=== PATIENT | male | born 1960 | race African-American/Black ===

== ENCOUNTER 2017-04-13 23:44 | Inpatient (IN) | payer MEDICAID ==
[~2017-04-13] VITALS: Ht 175.3 cm; Wt 113.0 kg
[2017-04-14] MEDS ORDERED: AMLO10TA2 PO (00:20)
[2017-04-14 01:28] LABS: ASPARTATE AMINO TRANSFERASE 98 U/L (15-37); BLOOD UREA NITROGEN 75 mg/dL (7-18)
[2017-04-14] MEDS ORDERED: SODIUM CHLORIDE FLUSH 10ML SYR IVF ONE (02:00)
[2017-04-14] MEDS ORDERED: SODIUM CHLORIDE 0.9% 1,000ML IVBOLUS ONE (02:00)
[2017-04-14 03:16] LABS: DAU SCREEN DISCLAIMER
[2017-04-14] MEDS ORDERED: OXYcodone IR 5MG TABLET PO PRN (03:30)
[2017-04-14] MEDS ORDERED: ONDANSETRON 2MG/ML, 2ML IVPush PRN (03:30)
[2017-04-14] MEDS ORDERED: PROMETHAZINE 25 MG/ML, 1ML IM PRN (03:30)
[2017-04-14 03:55] LABS: ASPARTATE AMINO TRANSFERASE 92 U/L (15-37); BLOOD UREA NITROGEN 74 mg/dL (7-18)
[2017-04-14] MEDS: SODIUM CHLORIDE 0.9% 1,000 ML IV SCH ×3 (04:30→22:52)
[2017-04-14] MEDS: CEFTRIAXONE PMX 1GM/50ML 50 ML IV SCH (04:37)
[2017-04-14] MEDS: POTASSIUM CHLORIDE 20 MEQ TAB.ER.PRT PO SCH ×4 (04:48→17:44)
[2017-04-14] MEDS: HEPARIN 5,000 UNITS/ML, 1ML SQ SCH ×3 (05:30→22:52)
[2017-04-14] MEDS: METRONIDAZOLE PMX 500MG/100ML 100 ML IV SCH ×3 (05:45→22:52)
[2017-04-14 07:27] VITALS: BP 157/79
[2017-04-14 08:57] LABS: HIV 1&2 ANTIBODY SCREEN Nonreactive (Nonreactive); HIV-1 p24 ANTIGEN Nonreactive (Nonreactive)
[2017-04-14 09:47] LABS: HEPATITIS C VIRUS ANTIBODY Reactive (Nonreactive)
[2017-04-14 11:12] LABS: DAU SCREEN DISCLAIMER
[2017-04-14 11:28] LABS: POTASSIUM,URINE RANDOM 31 mmol/L
[2017-04-14 13:36] VITALS: BP 143/57
[2017-04-14] MEDS: FERROUS SULFATE 325 MG TABLET PO SCH (17:44)
[2017-04-14 18:09] LABS: OCCBLD OBC PASS
[2017-04-14 18:40] VITALS: BP 143/79
[2017-04-15 01:59] VITALS: BP 153/84
[2017-04-15] MEDS: HEPARIN 5,000 UNITS/ML, 1ML SQ SCH (03:19)
[2017-04-15] MEDS: CEFTRIAXONE PMX 1GM/50ML 50 ML IV SCH (04:33)
[2017-04-15 06:22] LABS: BLOOD UREA NITROGEN 27 mg/dL (7-18)
[2017-04-15 06:23] LABS: ASPARTATE AMINO TRANSFERASE 50 U/L (15-37)
[2017-04-15] MEDS: METRONIDAZOLE PMX 500MG/100ML 100 ML IV SCH ×3 (06:29→22:13)
[2017-04-15 07:12] VITALS: BP 153/72
[2017-04-15] MEDS: SODIUM CHLORIDE 0.9% 1,000 ML IV SCH ×3 (08:20→22:13)
[2017-04-15] MEDS ORDERED: POTASSIUM CHLORIDE 20 MEQ TAB.ER.PRT PO ONE (09:30)
[2017-04-15] MEDS: GABAPENTIN 300 MG CAPSULE PO SCH ×3 (10:21→22:48)
[2017-04-15] MEDS: AMLODIPINE 5 MG TABLET PO SCH (10:22)
[2017-04-15] MEDS: FERROUS SULFATE 325 MG TABLET PO SCH ×3 (10:22→22:12)
[2017-04-15 12:40] VITALS: BP 187/72
[2017-04-15] MEDS ORDERED: PNEUMOCOCCAL 23 VACCINE IM-VACC ONE (13:00)
[2017-04-15 19:30] VITALS: BP 173/85
[2017-04-15] MEDS: QUETIAPINE 25MG TABLET PO SCH (22:13)
[2017-04-16 01:15] VITALS: BP 193/93
[2017-04-16] MEDS: LABETALOL 5MG/ML, 20ML IVPush PRN ×2 (01:33→20:39)
[2017-04-16] MEDS: SODIUM CHLORIDE 0.9% 1,000 ML IV SCH ×3 (04:09→16:38)
[2017-04-16] MEDS: CEFTRIAXONE PMX 1GM/50ML 50 ML IV SCH (04:10)
[2017-04-16] MEDS: METRONIDAZOLE PMX 500MG/100ML 100 ML IV SCH ×2 (06:08→13:58)
[2017-04-16 06:21] LABS: BLOOD UREA NITROGEN 13 mg/dL (7-18)
[2017-04-16 08:00] VITALS: BP 164/85
[2017-04-16] MEDS: FERROUS SULFATE 325 MG TABLET PO SCH ×3 (08:02→15:56)
[2017-04-16] MEDS: GABAPENTIN 300 MG CAPSULE PO SCH ×3 (08:02→21:47)
[2017-04-16] MEDS: AMLODIPINE 5 MG TABLET PO SCH (08:02)
[2017-04-16 14:58] VITALS: BP 169/79
[2017-04-16] MEDS: LISINOPRIL 10 MG TABLET PO SCH (18:05)
[2017-04-16 19:48] VITALS: BP 183/82
[2017-04-16] MEDS: QUETIAPINE 25MG TABLET PO SCH (21:00)
[2017-04-16 21:26] VITALS: BP_SYST 175; BP_SYST 178; BP_DIAS 85; BP_DIAS 95
[2017-04-17 00:07] VITALS: BP 173/83
[2017-04-17 02:10] VITALS: BP 172/89
[2017-04-17] MEDS: CEFTRIAXONE PMX 1GM/50ML 50 ML IV SCH (04:08)
[2017-04-17 05:24] LABS: BLOOD UREA NITROGEN 9 mg/dL (7-18)
[2017-04-17 05:28] LABS: ASPARTATE AMINO TRANSFERASE 22 U/L (15-37)
[2017-04-17 06:54] VITALS: BP 158/90
[2017-04-17] MEDS: GABAPENTIN 300 MG CAPSULE PO SCH ×3 (07:47→22:21)
[2017-04-17] MEDS: LISINOPRIL 10 MG TABLET PO SCH (07:47)
[2017-04-17] MEDS: FERROUS SULFATE 325 MG TABLET PO SCH ×3 (07:47→16:31)
[2017-04-17] MEDS: AMLODIPINE 5 MG TABLET PO SCH (07:48)
[2017-04-17] MEDS ORDERED: POTASSIUM CHLORIDE 20 MEQ TAB.ER.PRT PO ONE (09:30)
[2017-04-17 11:06] LABS: HCV LOG10 5.362 (.); HEPATITIS C PCR QUANTITATION 230000 IU/mL (.)
[2017-04-17] MEDS: LISINOPRIL 20 MG TABLET PO SCH (13:26)
[2017-04-17] MEDS: LISINOPRIL 5 MG TABLET PO SCH (13:26)
[2017-04-17 13:29] VITALS: BP 156/81
[2017-04-17 19:18] VITALS: BP 185/90
[2017-04-17] MEDS: LABETALOL 5MG/ML, 20ML IVPush PRN (19:51)
[2017-04-17] MEDS: QUETIAPINE 25MG TABLET PO SCH (22:21)
[2017-04-17 22:29] VITALS: BP 171/89
[2017-04-18 00:05] VITALS: BP 144/74
[2017-04-18] MEDS: CEFTRIAXONE PMX 1GM/50ML 50 ML IV SCH (04:07)
[2017-04-18 06:47] LABS: ASPARTATE AMINO TRANSFERASE 22 U/L (15-37); BLOOD UREA NITROGEN 10 mg/dL (7-18)
[2017-04-18 07:03] VITALS: BP 163/109
[2017-04-18] MEDS: FERROUS SULFATE 325 MG TABLET PO SCH ×3 (09:09→16:23)
[2017-04-18] MEDS: TAMSULOSIN 0.4 MG CAP.ER.24H PO SCH (09:10)
[2017-04-18] MEDS: LISINOPRIL 20 MG TABLET PO SCH (09:10)
[2017-04-18] MEDS: AMLODIPINE 5 MG TABLET PO SCH (09:10)
[2017-04-18] MEDS: GABAPENTIN 300 MG CAPSULE PO SCH ×3 (09:10→20:49)
[2017-04-18] MEDS: LISINOPRIL 5 MG TABLET PO SCH (09:11)
[2017-04-18] MEDS: POTASSIUM CHLORIDE 20 MEQ TAB.ER.PRT PO SCH ×3 (11:29→20:49)
[2017-04-18 13:36] VITALS: BP 177/83
[2017-04-18 20:36] VITALS: BP 147/75
[2017-04-18] MEDS: QUETIAPINE 25MG TABLET PO SCH (20:49)
[2017-04-19 02:55] VITALS: BP 163/91
[2017-04-19] MEDS: CEFTRIAXONE PMX 1GM/50ML 50 ML IV SCH (04:12)
[2017-04-19 06:03] LABS: BLOOD UREA NITROGEN 11 mg/dL (7-18)
[2017-04-19 06:07] LABS: ASPARTATE AMINO TRANSFERASE 22 U/L (15-37)
[2017-04-19] MEDS ORDERED: MAGNESIUM SULFATE PMX 2GM/50ML 50 ML IV ONE (07:30)
[2017-04-19] MEDS: LISINOPRIL 20 MG TABLET PO SCH ×2 (08:23→21:25)
[2017-04-19] MEDS: TAMSULOSIN 0.4 MG CAP.ER.24H PO SCH (08:24)
[2017-04-19] MEDS: GABAPENTIN 300 MG CAPSULE PO SCH ×3 (08:24→21:24)
[2017-04-19] MEDS: FERROUS SULFATE 325 MG TABLET PO SCH ×3 (08:24→17:13)
[2017-04-19] MEDS: AMLODIPINE 5 MG TABLET PO SCH (08:25)
[2017-04-19 08:38] VITALS: BP 185/100
[2017-04-19 15:15] VITALS: BP 157/87
[2017-04-19 19:07] VITALS: BP 131/77
[2017-04-19] MEDS: QUETIAPINE 25MG TABLET PO SCH (21:24)
[2017-04-20 03:11] VITALS: BP 158/75
[2017-04-20] MEDS: CEFTRIAXONE PMX 1GM/50ML 50 ML IV SCH (04:30)
[2017-04-20 06:02] LABS: BLOOD UREA NITROGEN 11 mg/dL (7-18)
== END 2017-04-20 10:49 | disposition left against medical advice (07) | DRG 872 ==
LOC: ED 23:59 → EDIP 04-14 01:55 → 3NE 04-14 03:41
PROVIDERS: ADMIT Internal Medicine; ATTEND Internal Medicine
DX: A41.9 Sepsis, unspecified organism (principal); N17.9 Acute kidney failure, unspecified; E87.0 Hyperosmolality and hypernatremia; N13.30 Unspecified hydronephrosis; M62.82 Rhabdomyolysis; N39.0 Urinary tract infection, site not specified; E87.6 Hypokalemia; D50.9 Iron deficiency anemia, unspecified; K52.9 Noninfective gastroenteritis and colitis, unspecified; B18.2 Chronic viral hepatitis C; E83.42 Hypomagnesemia; I10 Essential (primary) hypertension; N40.1 Benign prostatic hyperplasia with lower urinary tract symptoms; R33.8 Other retention of urine; F15.10 Other stimulant abuse, uncomplicated; Z53.21 Procedure and treatment not carried out due to patient leaving prior to being seen by health care provider; Z79.899 Other long term (current) drug therapy; Z91.19 Patient's noncompliance with other medical treatment and regimen; Z59.0 Homelessness
CPT/HCPCS: 36415; 51702; 74176; 76770; 80048; 80053; 80074; 80307; 81001; 82272; 82436; 82550; 82570; 83540; 83550; 83605; 83690; 83735; 83880; 84100; 84133; 84300; 84443; 85025; 86703; 87086; 87324; 87521; 87522; 87899; 90732; 99285; J0696; J1644; G0435; J3475; J7030

== ENCOUNTER 2019-03-03 09:10 | Emergency (ER) | payer MEDICAID ==
[~2019-03-03] VITALS: Ht 180.3 cm; Wt 110.3 kg
[~2019-03-03 09:10] MED LIST: AMLO10TA8 PO
[2019-03-03 09:15] VITALS: BP 167/82
[2019-03-03] MEDS ORDERED: HTN MED PO (09:34)
[2019-03-03] MEDS ORDERED: DIPH,PERTUSS(ACELL),TET VAC/PF 0.5 ML IM-VACC ONE ×2 (09:36→10:00)
[2019-03-03] MEDS ORDERED: BACITRACIN ZINC OINT 500U/GM, 0.9 GM ONE (09:44)
--- NOTE | 2019-03-03 10:11 | NUR ---
PT INST ON USE OF DERMAL WOUND PSS DELIVERY PROFESSIONAL AND APPLICATION ON BACITRACIN. DERMAL WOUND PSS DELIVERY PROFESSIONAL AND GAUZE PROVIDED TO PT. Patient/Caregiver given discharge instructions and they have confirmed that they understand the instructions. Patient ambulatory with steady gait.
== END 2019-03-03 10:58 | disposition home or self-care (01) ==
LOC: ED 10:23
DX: R23.4 Changes in skin texture (principal); M79.645 Pain in left finger(s); I10 Essential (primary) hypertension
CPT/HCPCS: 82962; 90471; 90715

== ENCOUNTER 2019-06-09 02:49 | Emergency (ER) | payer MEDICAID ==
[~2019-06-09] VITALS: Ht 177.8 cm; Wt 96.6 kg
[~2019-06-09 02:49] MED LIST changes: +HTN MED PO
[2019-06-09] MEDS ORDERED: QUETIAPINE 25MG TABLET ONE (03:19)
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
[2019-06-09] MEDS ORDERED: QUETIAPINE 25MG TABLET PO ONE (03:30)
[2019-06-09 03:48] LABS: ALBUMIN 3.6 g/dL (3.4-5.0); ANION GAP 7 mmol/L (5-15); CALCIUM 8.4 mg/dL (8.5-10.1); CHLORIDE 113 mmol/L (98-107); CREATININE 0.63 mg/dL (0.7-1.3)
--- NOTE | 2019-06-09 03:48 | NUR ---
Pt aware of need for ua. States not able to at this time.
[2019-06-09 03:50] LABS: SALICYLATE LEVEL < 1.7 mg/dL (2.8-20.0)
[2019-06-09 03:58] LABS: MEAN CORPUSCULAR HEMOGLOBIN 25.6 pg (27.5-34.5); MEAN CORPUSCULAR HGB CONC 31.6 g/dL (33.2-36.2); PLATELET COUNT 274 x10^3/uL (130-400); RED BLOOD COUNT 4.08 x10^6/uL (4.38-5.82); RED CELL DISTRIBUTION WIDTH 15.4 % (9.4-14.8)
--- NOTE | 2019-06-09 04:19 | NUR ---
Resting comfortably on gurney. Given water, blanket, and non-skid socks per request.
[2019-06-09 04:31] LABS: BASOPHILS # (AUTO) 0.02 x10^3/uL (0-0.1); BASOPHILS % (AUTO) 0 % (0-1); EOSINOPHILS # (AUTO) 0.16 x10^3/uL (0-0.4); EOSINOPHILS % (AUTO) 3 % (1-7); LYMPHOCYTES # (AUTO) 1.72 x10^3/uL (1-3.4); LYMPHOCYTES % (AUTO) 32 % (22-44); MD MORPH REVIEW ONLY; MONOCYTES # (AUTO) 0.67 x10^3/uL (0.2-0.8); MONOCYTES % (AUTO) 12 % (2-9); NEUTROPHILS # (AUTO) 2.84 x10^3/uL (1.8-6.8); NEUTROPHILS % (AUTO) 52 % (42-75)
[2019-06-09 04:32] LABS: ANISOCYTOSIS 1+; OVALOCYTES 1+; TARGET CELLS 1+
[2019-06-09 04:36] LABS: TEAR DROPS 1+
[2019-06-09 04:37] LABS: <PLATELET ESTIMATE> ADEQUATE; <PLT MORPHOLOGY> NORMAL PLT MORPH
--- NOTE | 2019-06-09 04:59 | NUR ---
Soc updated on pt and telepsych initiated.
--- NOTE | 2019-06-09 05:44 | NUR ---
Pt to be held on L2K per md verbal order. Roller doors still in place and sitter in hallway. No immediate needs.
--- NOTE | 2019-06-09 07:21 | NUR ---
RECEIVED REPORT FROM MICKIE ALFORD RN. PT SLEEPING ON GURNEY. ANDREA. SITTER AT BEDSIDE. ROOM REMAINS SECURE.
--- NOTE | 2019-06-09 08:29 | NUR ---
PT PROVIDED W/ SI BREAKFAST TRAY. PT RESTING ON GURNITESH. ALEJANDRON. VSS. SITTER REMAINS AT BEDSIDE. ROOM REMAINS SECURE.
[2019-06-09 08:30] VITALS: BP 170/93
[2019-06-09 08:52] LABS: AMPHETAMINE SCREEN, URINE Positive (Negative); BARBITURATE SCREEN, URINE Negative (Negative); BENZODIAZEPINE SCREEN, URINE Negative (Negative); CANNABINOID SCREEN, URINE Negative (Negative); COCAINE SCREEN, URINE Negative (Negative); METHADONE SCREEN, URINE Negative (Negative); OPIATE SCREEN, URINE Negative (Negative)
--- NOTE | 2019-06-09 09:30 | NUR ---
PT RESTING ON STEPHANIE. ANDREA. SITTER REMAINS AT BEDSIDE. ROOM REMAINS SECURE.
--- NOTE | 2019-06-09 10:45 | NUR ---
PT RESTING ON STEPHANIE. ANDREA. SITTER REMAINS AT BEDSIDE. ROOM REMAINS SECURE.
--- NOTE | 2019-06-09 12:01 | NUR ---
PT RESTING ON STEPHANIE. ANDREA. SITTER REMAINS AT BEDSIDE. ROOM REMAINS SECURE.
--- NOTE | 2019-06-09 12:47 | NUR ---
REPORT TO KEITH IBARRA.
[2019-06-09] MEDS ORDERED: QUET25TA5 PO (14:01)
[2019-06-09] MEDS ORDERED: AMLO10TA8 PO (14:02)
--- NOTE | 2019-06-09 14:30 | NUR ---
[facility] [place] CALLED. MED REC UPDATED.
--- NOTE | 2019-06-09 15:06 | NUR ---
CALLED [facility] IN [place] AT THE REQUEST OF DEVANTE FUCHS. PER [facility], THE PATIENT HAS NO OTHER NEW MEDS OTHER THAN THOSE ALREADY OBTAINED FROM [facility] AND [facility] IN [place]. DEVANTE FUCHS NOTIFIED.
[2019-06-09] MEDS ORDERED: IBUPROFEN 800 MG TABLET ONE (15:20)
[2019-06-09] MEDS ORDERED: QUETIAPINE 25MG TABLET PO PRN (15:30)
[2019-06-09] MEDS ORDERED: IBUPROFEN 800 MG TABLET PO ONE (17:00)
--- NOTE | 2019-06-09 18:34 | NUR ---
Patient/Caregiver given discharge instructions and they have confirmed that they understand the instructions. Patient ambulatory with steady gait. Taxi voucher given for patient safety, to [facility].
== END 2019-06-09 18:35 | disposition home or self-care (01) ==
LOC: ED 06:52
DX: R45.851 Suicidal ideations (principal); F23 Brief psychotic disorder; D64.9 Anemia, unspecified; I10 Essential (primary) hypertension; F17.200 Nicotine dependence, unspecified, uncomplicated; Z72.9 Problem related to lifestyle, unspecified
CPT/HCPCS: 36415; 80048; 80307; 82040; 85025; 99284

== ENCOUNTER 2019-07-06 06:13 | Inpatient (IN) | payer MEDICAID ==
[~2019-07-06] VITALS: Ht 180.3 cm; Wt 100.0 kg
[~2019-07-06 06:13] MED LIST changes: +QUET25TA5 PO
--- NOTE | 2019-07-06 06:19 | NUR ---
ABEL CURRIE FROM THE [facility] FOR C/O LLQ ABD PAIN X 12 HOURS. PT. STORY IS DIFFICULT TO FOLLOW BUT STATES HAS REQUIRED A CAHTETER IN THE PAST FOR INABILITY TO URINATE. PT. C/O "I WAS PUSHING SO HARD AND NOW MY BUTT IS HURTING TOO." PT. REPORTS METH USE A COUPLE HOURS AGO. PT. WITH ERRATIC BEHAVIOR. CONTINUOUS PULSE OX AND B/P MONIORS PLACED. PT. USING URINAL AND STATING "I KEEP PEEPING MYSELF". CHRISTOPHE MANCERA WAS IN TO EVAL PT. AND DISCUSS POC.
[2019-07-06] MEDS ORDERED: ONDANSETRON 2MG/ML, 2ML IVPush ONE (06:30)
[2019-07-06] MEDS ORDERED: MORPHINE SULFATE 4 MG/ML, 1ML IVPush PRN (06:30)
[2019-07-06] MEDS ORDERED: SODIUM CHLORIDE FLUSH 10ML SYR IVF ONE (06:30)
[2019-07-06 06:46] LABS: MEAN CORPUSCULAR HEMOGLOBIN 25.9 pg (27.5-34.5); MEAN CORPUSCULAR HGB CONC 32.3 g/dL (33.2-36.2); MEAN CORPUSCULAR VOLUME 80.1 fL (81-97); MEAN PLATELET VOLUME 7.7 fL (7.4-10.4); PLATELET COUNT 333 x10^3/uL (130-400); RED BLOOD COUNT 5.04 x10^6/uL (4.38-5.82); RED CELL DISTRIBUTION WIDTH 17.6 % (9.4-14.8)
--- NOTE | 2019-07-06 06:53 | NUR ---
AFTER BLADDER SCAN RESULTS OF >999 REPORTED TO PROVIDER NEW ORDER FOR ARNOLD PLACEMENT RECEIVED. ARNOLD PLACED AND IMMEDIATE RETURN OF 1700ML OF MARIO URINE RETURNED AND STILL DRAINING. PT. REPORTED RELIEF FROM PAIN WITH THIS. URINE SAMPLE COLLECTED AND SENT TO LAB.
[2019-07-06 06:56] LABS: ALANINE AMINOTRANSFERASE 77 U/L (12-78); ANION GAP 12 mmol/L (5-15); CALCIUM 9.1 mg/dL (8.5-10.1); CHLORIDE 104 mmol/L (98-107); CREATININE 2.67 mg/dL (0.7-1.3)
[2019-07-06 06:58] LABS: ALKALINE PHOSPHATASE 88 U/L (45-117); BILIRUBIN,TOTAL 1.1 mg/dL (0.2-1.0); TOTAL PROTEIN 8.4 g/dL (6.4-8.2)
--- NOTE | 2019-07-06 06:59 | NUR ---
REPORT TO KEITH TYSON. PT. RESTING ON GURNEY WITH EYES CLOSED AND NO DISTRESS NOTED AT THIS TIME.
--- NOTE | 2019-07-06 07:00 | NUR ---
REPORT RECIEVED, ASSUMED CARE OF PT. PT RESTING ON MELVINA BROWN, NAD NOTED
[2019-07-06 07:04] LABS: MICROSCOPIC AUTO
--- NOTE | 2019-07-06 07:10 | NUR ---
CLARIFIED IV NECESSITY AND IV MED ORDERS, PT NOT A CANDIDATE FOR CT C CONTRAST D/T KIDNEY FUNCTION, WILL HOLD MEDS AT THIS TIME
[2019-07-06 07:15] LABS: CULTURE INDICATED? NO
--- NOTE | 2019-07-06 07:23 | NUR ---
PT TO CT
[2019-07-06 07:26] LABS: MD MORPH REVIEW ONLY
[2019-07-06 07:27] LABS: BASOPHILS # (AUTO) 0.01 x10^3/uL (0-0.1); BASOPHILS % (AUTO) 0 % (0-1); EOSINOPHILS # (AUTO) 0.02 x10^3/uL (0-0.4); EOSINOPHILS % (AUTO) 0 % (1-7); LYMPHOCYTES % (AUTO) 10 % (22-44); MONOCYTES # (AUTO) 1.16 x10^3/uL (0.2-0.8); MONOCYTES % (AUTO) 12 % (2-9); NEUTROPHILS # (AUTO) 7.78 x10^3/uL (1.8-6.8); NEUTROPHILS % (AUTO) 78 % (42-75)
[2019-07-06 07:29] LABS: <PLATELET ESTIMATE> ADEQUATE; <PLT MORPHOLOGY> NORMAL PLT MORPH; ANISOCYTOSIS 1+; HYPOCHROMIA 1+
[2019-07-06] MEDS ORDERED: SODIUM CHLORIDE 0.9% 1,000 ML IV ONE (07:58)
[2019-07-06] MEDS ORDERED: SODIUM CHLORIDE FLUSH 10ML SYR IVF PRN (08:00)
--- NOTE | 2019-07-06 08:11 | NUR ---
PT TO BE ADMITTED, ATTEMPT AT IV ACCESS X2 UNABLE TO OBTAIN.
--- NOTE | 2019-07-06 08:27 | NUR ---
REPORT TO RECEIVING RN. VALERY ESTABLISHED, PT RTG
[2019-07-06 09:40] VITALS: BP 159/99
[2019-07-06] MEDS ORDERED: BISACODYL 10 MG SUPP PR PRN (12:00)
[2019-07-06] MEDS ORDERED: morphine SULFATE 10 MG/ML, 1ML IVPush PRN (12:00)
[2019-07-06] MEDS ORDERED: hydrALAzine 20 MG/ML, 1ML IVPush PRN (12:00)
[2019-07-06] MEDS ORDERED: DOCUSATE 100 MG CAPSULE PO PRN (12:00)
[2019-07-06] MEDS ORDERED: POLYETHYLENE GLYCOL 17 GM PACKET PO PRN (12:00)
[2019-07-06] MEDS ORDERED: ACETAMINOPHEN 325 MG TABLET PO PRN (12:00)
[2019-07-06] MEDS ORDERED: OXYcodone IR 5MG TABLET PO PRN (12:00)
[2019-07-06] MEDS ORDERED: ONDANSETRON 2MG/ML, 2ML IVPush PRN (12:00)
[2019-07-06] MEDS ORDERED: ONDANSETRON ODT 4 MG PO PRN (12:00)
[2019-07-06] MEDS ORDERED: PROMETHAZINE 25 MG/ML, 1ML IM PRN (12:00)
[2019-07-06 12:29] VITALS: BP 137/77
[2019-07-06] MEDS: HEPARIN 5,000 UNITS/ML, 1ML SQ SCH ×2 (12:33→20:24)
[2019-07-06] MEDS: SODIUM CHLORIDE 0.9% 1,000 ML IV SCH ×2 (12:33→20:24)
[2019-07-06] MEDS: AMLODIPINE 10 MG TAB PO SCH (12:33)
[2019-07-06] MEDS: TAMSULOSIN 0.4 MG CAP.ER.24H PO SCH (12:34)
[2019-07-06] MEDS: FINASTERIDE 5 MG TABLET PO SCH (12:57)
[2019-07-06 14:04] LABS: TROPONIN I 0.214 ng/mL (0.000-0.045)
[2019-07-06 14:11] LABS: FREE T4 (FREE THYROXINE) 1.31 ng/dL (0.76-1.46)
[2019-07-06 14:22] LABS: HEMOGLOBIN A1C 5.3 % (4.2-6.3)
[2019-07-06 18:59] VITALS: BP 125/74
[2019-07-06] MEDS: QUETIAPINE 25MG TABLET PO SCH (20:24)
[2019-07-07 01:29] VITALS: BP 149/93
[2019-07-07] MEDS: SODIUM CHLORIDE 0.9% 1,000 ML IV SCH ×3 (04:15→11:22)
[2019-07-07] MEDS: HEPARIN 5,000 UNITS/ML, 1ML SQ SCH ×3 (04:15→20:47)
[2019-07-07 07:13] VITALS: BP 142/73
[2019-07-07 09:16] LABS: BASOPHILS # (AUTO) 0.01 x10^3/uL (0-0.1); BASOPHILS % (AUTO) 0 % (0-1); EOSINOPHILS # (AUTO) 0.11 x10^3/uL (0-0.4); EOSINOPHILS % (AUTO) 2 % (1-7); LYMPHOCYTES # (AUTO) 1.33 x10^3/uL (1-3.4); LYMPHOCYTES % (AUTO) 25 % (22-44); MD NO; MEAN CORPUSCULAR HEMOGLOBIN 25.7 pg (27.5-34.5); MEAN CORPUSCULAR HGB CONC 31.9 g/dL (33.2-36.2); MEAN CORPUSCULAR VOLUME 80.7 fL (81-97); MEAN PLATELET VOLUME 6.9 fL (7.4-10.4); MONOCYTES # (AUTO) 0.77 x10^3/uL (0.2-0.8); MONOCYTES % (AUTO) 15 % (2-9); NEUTROPHILS # (AUTO) 3.02 x10^3/uL (1.8-6.8); NEUTROPHILS % (AUTO) 58 % (42-75); PLATELET COUNT 351 x10^3/uL (130-400); RED BLOOD COUNT 4.47 x10^6/uL (4.38-5.82)
[2019-07-07 09:26] LABS: ALBUMIN 3.2 g/dL (3.4-5.0); ANION GAP 8 mmol/L (5-15); CALCIUM 8.6 mg/dL (8.5-10.1); CHLORIDE 112 mmol/L (98-107); CHOLESTEROL, TOTAL 132 mg/dL (140-239)
[2019-07-07 09:34] LABS: ALANINE AMINOTRANSFERASE 67 U/L (12-78); ALKALINE PHOSPHATASE 73 U/L (45-117); BILIRUBIN,TOTAL 0.7 mg/dL (0.2-1.0); CHOL/HDL RATIO 2.9; CREATININE 1.03 mg/dL (0.7-1.3); HDL CHOL % 35 % (26-37); HDL CHOLESTEROL (DIRECT) 46 mg/dL (40-60); LDL CHOLESTEROL,CALCULATED 74 mg/dL (54-169); LDL/HDL RATIO 1.6 (0.5-3.0); TOTAL PROTEIN 7.3 g/dL (6.4-8.2); TRIGLYCERIDES 61 mg/dL (50-200); TROPONIN I 0.116 ng/mL (0.000-0.045); VLDL CHOLESTEROL 12 mg/dL (0-25)
[2019-07-07] MEDS: TAMSULOSIN 0.4 MG CAP.ER.24H PO SCH (09:34)
[2019-07-07] MEDS: FINASTERIDE 5 MG TABLET PO SCH (09:34)
[2019-07-07] MEDS: AMLODIPINE 10 MG TAB PO SCH (09:34)
[2019-07-07 19:55] VITALS: BP 151/71
[2019-07-07] MEDS: QUETIAPINE 25MG TABLET PO SCH (21:00)
[2019-07-08 00:41] VITALS: BP 154/92
[2019-07-08] MEDS: QUETIAPINE 25MG TABLET PO SCH ×2 (01:19→20:29)
[2019-07-08] MEDS: HEPARIN 5,000 UNITS/ML, 1ML SQ SCH ×4 (05:49→21:39)
[2019-07-08 07:08] VITALS: BP 153/80
[2019-07-08] MEDS: TAMSULOSIN 0.4 MG CAP.ER.24H PO SCH (09:15)
[2019-07-08] MEDS: FINASTERIDE 5 MG TABLET PO SCH (09:15)
[2019-07-08] MEDS: AMLODIPINE 10 MG TAB PO SCH (09:15)
[2019-07-08 14:24] VITALS: BP 142/74
[2019-07-08] MEDS ORDERED: TAMS-11 PO (17:43)
[2019-07-08] MEDS ORDERED: FINA5TAB4 PO (17:43)
[2019-07-08 19:47] VITALS: BP 146/83
[2019-07-09 01:01] VITALS: BP 141/77
[2019-07-09 05:33] LABS: CHLORIDE 109 mmol/L (98-107)
[2019-07-09 05:47] LABS: MEAN CORPUSCULAR HEMOGLOBIN 26.3 pg (27.5-34.5); MEAN CORPUSCULAR HGB CONC 31.7 g/dL (33.2-36.2); MEAN CORPUSCULAR VOLUME 83.1 fL (81-97); MEAN PLATELET VOLUME 8.1 fL (7.4-10.4); PLATELET COUNT 313 x10^3/uL (130-400); RED BLOOD COUNT 4.32 x10^6/uL (4.38-5.82); RED CELL DISTRIBUTION WIDTH 17.7 % (9.4-14.8)
[2019-07-09 05:49] LABS: ANION GAP 8 mmol/L (5-15); CALCIUM 8.5 mg/dL (8.5-10.1); CREATININE 0.64 mg/dL (0.7-1.3)
[2019-07-09 06:49] LABS: BASOPHILS # (AUTO) 0.03 x10^3/uL (0-0.1); BASOPHILS % (AUTO) 1 % (0-1); EOSINOPHILS # (AUTO) 0.09 x10^3/uL (0-0.4); EOSINOPHILS % (AUTO) 2 % (1-7); LYMPHOCYTES # (AUTO) 1.88 x10^3/uL (1-3.4); LYMPHOCYTES % (AUTO) 38 % (22-44); MD MORPH REVIEW ONLY; MONOCYTES % (AUTO) 16 % (2-9); NEUTROPHILS # (AUTO) 2.08 x10^3/uL (1.8-6.8); NEUTROPHILS % (AUTO) 43 % (42-75)
[2019-07-09 06:50] LABS: ANISOCYTOSIS 1+; TARGET CELLS 1+
[2019-07-09 06:51] LABS: OVALOCYTES 1+
[2019-07-09 06:52] LABS: <PLATELET ESTIMATE> ADEQUATE; <PLT MORPHOLOGY> NORMAL PLT MORPH; HYPOCHROMIA 1+
[2019-07-09 07:59] VITALS: BP 184/89
[2019-07-09] MEDS: AMLODIPINE 10 MG TAB PO SCH (08:46)
[2019-07-09] MEDS: TAMSULOSIN 0.4 MG CAP.ER.24H PO SCH (08:46)
[2019-07-09] MEDS: FINASTERIDE 5 MG TABLET PO SCH (08:46)
[2019-07-09] MEDS: HEPARIN 5,000 UNITS/ML, 1ML SQ SCH ×2 (13:00→21:03)
[2019-07-09] MEDS ORDERED: MAGNESIUM SULFATE PMX 2GM/50ML 50 ML IV ONE (13:30)
[2019-07-09 13:55] VITALS: BP 156/76
[2019-07-09 19:45] VITALS: BP 177/103
[2019-07-09 20:55] VITALS: BP 146/84
[2019-07-09] MEDS: QUETIAPINE 25MG TABLET PO SCH (21:03)
[2019-07-10 00:34] VITALS: BP 150/81
[2019-07-10] MEDS: HEPARIN 5,000 UNITS/ML, 1ML SQ SCH ×3 (04:13→20:16)
[2019-07-10 06:07] LABS: CHLORIDE 108 mmol/L (98-107)
[2019-07-10 06:14] LABS: ANION GAP 7 mmol/L (5-15); CALCIUM 8.7 mg/dL (8.5-10.1); CREATININE 0.65 mg/dL (0.7-1.3)
[2019-07-10 07:20] VITALS: BP 148/83
[2019-07-10] MEDS: TAMSULOSIN 0.4 MG CAP.ER.24H PO SCH (08:55)
[2019-07-10] MEDS: AMLODIPINE 10 MG TAB PO SCH (08:55)
[2019-07-10] MEDS: FINASTERIDE 5 MG TABLET PO SCH (08:55)
[2019-07-10 13:26] VITALS: BP 142/73
[2019-07-10 18:48] VITALS: BP 158/75
[2019-07-10] MEDS: QUETIAPINE 25MG TABLET PO SCH (22:00)
[2019-07-11 01:04] VITALS: BP 139/78
[2019-07-11] MEDS: HEPARIN 5,000 UNITS/ML, 1ML SQ SCH (04:59)
[2019-07-11 05:47] LABS: ANION GAP 8 mmol/L (5-15); CALCIUM 8.4 mg/dL (8.5-10.1); CHLORIDE 108 mmol/L (98-107)
[2019-07-11 05:48] LABS: CREATININE 0.71 mg/dL (0.7-1.3)
[2019-07-11] MEDS: TAMSULOSIN 0.4 MG CAP.ER.24H PO SCH (09:24)
[2019-07-11] MEDS: AMLODIPINE 10 MG TAB PO SCH (09:24)
[2019-07-11] MEDS: FINASTERIDE 5 MG TABLET PO SCH (09:25)
== END 2019-07-11 10:35 | disposition home or self-care (01) | DRG 812 ==
LOC: ED 07:44 → 3N 09:46 → DCLOUNGE 07-11 10:28
PROVIDERS: ADMIT Emergency Medicine; ATTEND Emergency Medicine
PROC: 0T9B70Z Drainage of Bladder with Drainage Device, Via Natural or Artificial Opening (ICD-10-PCS; principal; 2019-07-06)
DX: T43.621A Poisoning by amphetamines, accidental (unintentional), initial encounter (principal); I21.4 Non-ST elevation (NSTEMI) myocardial infarction; N17.9 Acute kidney failure, unspecified; E87.2 Acidosis; F15.10 Other stimulant abuse, uncomplicated; D50.9 Iron deficiency anemia, unspecified; R45.851 Suicidal ideations; N13.8 Other obstructive and reflux uropathy; B18.2 Chronic viral hepatitis C; F32.9 Major depressive disorder, single episode, unspecified; I10 Essential (primary) hypertension; F43.12 Post-traumatic stress disorder, chronic; N40.1 Benign prostatic hyperplasia with lower urinary tract symptoms; R33.8 Other retention of urine; Z63.8 Other specified problems related to primary support group; Y92.89 Other specified places as the place of occurrence of the external cause; Z53.29 Procedure and treatment not carried out because of patient's decision for other reasons
CPT/HCPCS: 36415; 74176; 80048; 80053; 80061; 81001; 82728; 83036; 83540; 83550; 83735; 84439; 84443; 84466; 84484; 85025; 93005; 93306; 96374; 99285; G0378; J1644; J0360; J3475; J7030

== ENCOUNTER 2020-08-29 08:57 | Outpatient (CLI) | payer OTHER ==
[~2020-08-29 08:57] MED LIST changes: +AMLO-211 PO; -AMLO10TA8 PO; +FINA5TAB4 PO; +TAMS-11 PO
[2020-08-29 11:09] LABS: CREATININE 0.84 mg/dL (0.7-1.3)
[2020-08-29] MEDS ORDERED: OMNIPAQUE 350 MG/ML, 75ML BOTTLE ONE (12:09)
== END 2020-08-29 23:59 | disposition home or self-care (01) ==
LOC: RAD 08:57
DX: J92.9 Pleural plaque without asbestos (principal); R91.1 Solitary pulmonary nodule; J98.11 Atelectasis; J98.4 Other disorders of lung; Z77.098 Contact with and (suspected) exposure to other hazardous, chiefly nonmedicinal, chemicals; E11.9 Type 2 diabetes mellitus without complications
CPT/HCPCS: 36415; 71260; 82565; Q9967

== ENCOUNTER 2020-10-21 06:47 | Emergency (ER) | payer MEDICAID, OTHER ==
[~2020-10-21] VITALS: Ht 167.6 cm; Wt 82.5 kg
--- NOTE | 2020-10-21 06:54 | NUR ---
[email or web address]
[2020-10-21 07:01] VITALS: BP 148/70
--- NOTE | 2020-10-21 07:16 | NUR ---
Pt eating orange with peel, educated pt about current NPO status as he has multiple complaints. Pt states that he "wants to know about my lungs, I started losing my voice 3 days ago when I got released from group home." Pt states he's been staying at the [facility]. Pt with tick-like movements of eyes and mouth.
--- NOTE | 2020-10-21 07:20 | NUR ---
NADN, sitting upright in bed.
== END 2020-10-21 07:47 | disposition home or self-care (01) ==
LOC: ED 07:40
DX: F15.10 Other stimulant abuse, uncomplicated (principal); I10 Essential (primary) hypertension
CPT/HCPCS: 99283